=== PATIENT | female | born 1990 | race American Indian/Alaskan Native ===

== ENCOUNTER 2017-02-02 10:12 | Emergency (ER) | payer SELFPAY ==
[2017-02-02 16:45] VITALS: BP 104/67
--- NOTE | 2017-02-02 18:43 | Emergency Department Report ---
Entered by JAMAR OROURKE, acting as scribe for MARILIA ANDERSON NP. - General Chief Complaint: Laceration/Recheck/Suture Stated Complaint: LEFT HAND MIDDLE FINGER Time Seen by Provider: 02/02/17 15:27 Source: patient Mode of arrival: Ambulatory Limitations: No Limitations - History of Present Illness Initial Comments: This is a 26 y/o female, nontoxic, well nourished in appearance, no acute signs of distress presents with laceration to left middle finger that occurred this morning around 12 AM. Patient stated she accidentally cut herself with a clean knife from the kitchen before cutting her vegetables. Associated symptoms include pain but she denies nausea, vomiting, numbness, tingling, bleeding, chest pain, short of breath, stiff neck, fever, chills, fever and chills. Pain is described as sharp, throbbing and 9/10 on a severity scale. No alleviating or aggravating factors. NKDA. Patient states she is 11 weeks . Patient stated is UTD with tetanus. Patient stated was last week and her [employer] with normal . Onset/Timin (AM) -: Gradual, This morning Location: other (left middle finger ) Extremity Location: Left: Hand (middle finger) Place: home Patient Tetanus UTD: Yes (as per patient) Context: sharp object use (knife) Associated Symptoms: none. denies: pain, loss of feeling/numbness, suspect foreign body present, unable to move injured part, weakness followed by dizziness, nausea/vomiting, fever, other (fever/chills) - Related Data Previous Rx's Medication Instructions Recorded Last Taken Type Acetaminophen/Codeine 1 tab PO Q6H PRN #30 tab 05/02/14 Unknown Rx [Acetaminophen-Codeine #3 TAB] Cyclobenzaprine [Flexeril 10mg] 10 mg PO TID PRN #30 tablet 05/02/14 Unknown Rx Ibuprofen [Motrin] 800 mg PO TID PRN #60 tablet 05/02/14 Unknown Rx Amoxicillin/K Clav Tab [Augmentin 1 tab PO Q12HR 7 Days 02/02/17 Unknown Rx 875 mg] Allergies Allergy/AdvReac Type Severity Reaction Status Date / Time No Known Allergies Allergy Verified 05/01/14 21:32 ED Review of Systems Comment: All other systems reviewed and negative Constitutional: denies: chills, fever Eyes: denies: eye pain, eye discharge, vision change ENT: denies: ear pain, throat pain Respiratory: denies: cough, shortness of breath, wheezing Cardiovascular: denies: chest pain, palpitations Endocrine: no symptoms reported Gastrointestinal: denies: nausea, vomiting Genitourinary: denies: urgency, dysuria, discharge Musculoskeletal: denies: back pain, joint swelling, arthralgia Skin: other (pain, laceration to left middle finger) Neurological: denies: headache, weakness, paresthesias Psychiatric: denies: anxiety, depression Hematological/Lymphatic: denies: easy bleeding, easy bruising ED Past Medical Hx - Past Medical History Previous Medical History?: Yes Additional medical history: Vaginal delivery 2007. Hx. of meningitis in 2009 - Surgical History Past Surgical History?: No - Social History Smoking Status: Never Smoker Substance Use Type: None - Medications Home Medications: Home Medications Medication Instructions Recorded Confirmed Last Taken Type Acetaminophen/Codeine 1 tab PO Q6H PRN #30 tab 05/02/14 Unknown Rx [Acetaminophen-Codeine #3 TAB] Cyclobenzaprine [Flexeril 10mg] 10 mg PO TID PRN #30 tablet 05/02/14 Unknown Rx Ibuprofen [Motrin] 800 mg PO TID PRN #60 tablet 05/02/14 Unknown Rx Amoxicillin/K Clav Tab [Augmentin 1 tab PO Q12HR 7 Days 02/02/17 Unknown Rx 875 mg] ED Physical Exam - General Limitations: No Limitations General appearance: alert, in no apparent distress - Head Head exam: Present: atraumatic, normocephalic, normal inspection - Eye Eye exam: Present: normal appearance, PERRL, EOMI. Absent: scleral icterus, conjunctival injection, nystagmus, periorbital swelling, periorbital tenderness Pupils: Present: normal accommodation - ENT ENT exam: Present: normal exam, normal orophraynx, mucous membranes moist, TM's normal bilaterally, normal external ear exam - Neck Neck exam: Present: normal inspection, full ROM. Absent: tenderness, meningismus, lymphadenopathy, thyromegaly - Respiratory Respiratory exam: Present: normal lung sounds bilaterally. Absent: respiratory distress, wheezes, rales, rhonchi, stridor, chest wall tenderness, accessory muscle use, decreased breath sounds, prolonged expiratory - Cardiovascular Cardiovascular Exam: Present: regular rate, normal rhythm, normal heart sounds. Absent: bradycardia, tachycardia, irregular rhythm, systolic murmur, diastolic murmur, rubs, gallop - GI/Abdominal GI/Abdominal exam: Present: soft, normal bowel sounds. Absent: distended, tenderness, guarding, rebound, rigid, diminished bowel sounds - Rectal Rectal exam: Present: deferred - Extremities Exam Extremities exam: Present: normal inspection, full ROM, normal capillary refill. Absent: tenderness, pedal edema, joint swelling, calf tenderness - Expanded Upper Extremity Exam Left General: Present: normal inspection, laceration Shoulder Exam: Present: normal inspection, full ROM. Absent: tenderness, swelling, abrasion, laceration, ecchymosis, deformity, crepidus, dislocation, erythema, tenderness over AC joint Upper Arm exam: Present: normal inspection, full ROM. Absent: tenderness, swelling, abrasion, laceration, ecchymosis, deformity, crepidus, dislocation, erythema Elbow exam: Present: normal inspection, full ROM. Absent: tenderness, swelling , abrasion, laceration, ecchymosis, deformity, crepidus, dislocation, erythema, effusion, pain w/ pronation/supination, tenderness over radial head Forearm Wrist exam: Present: normal inspection, full ROM. Absent: tenderness, swelling, abrasion, laceration, ecchymosis, deformity, crepidus, dislocation, erythema, tenderness over anatomical snuff box, pain with axial thumb loading Hand Wrist exam: Present: normal inspection, full ROM, laceration (1 cm superficial laceration to the distal middle finger). Absent: tenderness, swelling, abrasion, ecchymosis, deformity, crepidus, dislocation, erythema, amputation, nail avulsion, subungual hematoma Hand L/R Front: 1 - Positive: laceration (1 cm laceration) Neuro motor exam: Present: wrist extension intact, thumb opposition intact, thumb IP flexion intact, thumb adduction intact, fingers 2-5 abduction intact Neurosensory exam: Present: 2-point discrimination, radial nerve intact, ulnar nerve intact, median nerve intact Vascular: Present: vascular compromise, normal capillary refill, radial pulse, brachial pulse, ulnar pulse. Absent: Pallo, pulse deficit radial art, pulse deficit ulnar art, pulse deficit brachial art - Back Exam Back exam: Present: normal inspection, full ROM. Absent: tenderness, CVA tenderness (R), CVA tenderness (L), muscle spasm, paraspinal tenderness, vertebral tenderness, rash noted - Neurological Exam Neurological exam: Present: alert, altered, oriented X3, CN II-XII intact, normal gait, reflexes normal - Psychiatric Psychiatric exam: Present: normal affect, normal mood - Skin Skin exam: Present: warm, dry, intact, normal color. Absent: rash ED Course Vital Signs 02/02/17 11:11 Temperature 98.6 F Pulse Rate 88 Respiratory 18 Rate Blood Pressure 99/60 O2 Sat by Pulse 100 Oximetry - Reevaluation(s) Reevaluation #1: 02/02/17 16:17 Patient is able speak in full sentences with no signs of distress. Reevaluation #2: 02/02/17 16:18 Patient was instructed of cons of having the wound closed due to infection and longer than 12 hours. Patient insisted me to close the wound. Patient agrees and understands the risk factors of closing the wound. 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 I instructed the importance of signs of infection and keep area dry and clean. - Laceration /Wound Repair Left Finger Wound Location: upper extremity (left distal middle finger) Wound Length (cm): 1 Wound's Depth, Shape: superficial Wound Explored: clean Irrigated w/ Saline (ccs): 30 Betadine Prep?: Yes Wound Debrided: minimal Wound Repaired With: Dermabond Sterile Dressing Applied?: Yes Progress: Under sterile field, I used Betadine to clean the area. I then used 60 mL of normal saline with Betadine and soaked the patient's finger. I then cleaned the area with sterile saline. I applied Dermabond to the laceration linear. I then apply a sterile Steri-Strip to the area. I then applied a sterile 4 x 4 with tape. Minimal bleeding noted but is under control. Patient tolerated procedure well with no signs of distress. Patient received a finger splint. ED Medical Decision Making - Medical Decision Making ED course; this is a 26-year-old female that presents with one centimeter laceration to the distal middle finger Patient was examined myself. Patient was instructed of cons of having the wound closed due to infection and longer than 12 hours. Patient insisted me to close the wound. Patient agrees and understands the risk factors of closing the wound. 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 I instructed the importance of signs of infection and keep area dry and clean. It was similar laceration was repaired with Dermabond and Steri-Strips. I then applied a finger splint so the patient does not bend the finger times one week. Patient was discharged with Augmentin 7 days. Patient was instructed to follow-up with her primary care doctor in 3-5 days or symptoms such as pus, drainage, numbness, tingling, fever or chills return to the ER as soon as possible. At time time of discharge, the patient does not seem toxic or ill in appearance. No acute signs of distress noted. Patient agrees to discharge treatment plan of care. No further questions noted by the patient. ED Disposition Clinical Impression: Laceration Disposition: DC-01 TO HOME OR SELFCARE Is pt being admited?: No Does the pt Need Aspirin: No Condition: Stable Instructions: Laceration (ED), Acute Wound Care (ED), Amoxicillin/Clavulanate Potassium (By mouth) Additional Instructions: follow-up with your primary care doctor in 3-5 days or symptoms such as pus, drainage, numbness, tingling, fever or chills return to the ER as soon as possible. Take full course of antibiotics and was prescribed. You can remove the splint in 7 days. Keep area clean and dry for 7 days. Prescriptions: Amoxicillin/K Clav Tab [Augmentin 875 mg] 1 tab PO Q12HR 7 Days Referrals: PRIMARY CAREMD [Primary Care Provider] - 3-5 Days CONNOR SAMUEL MD [Staff Physician] - 3-5 Days [facility] [Outside] - 3-5 Days [facility] [Outside] - 3-5 Days Forms: Work/School Release Form(ED) This documentation as recorded by the HAVEN lee ELIZABETH,accurately reflects the service I personally performed and the decisions made by me,MARILIA ANDERSON, [employer].
== END 2017-02-02 16:55 | disposition home or self-care (01) ==
LOC: ED 10:12
DX: S61.213A Laceration without foreign body of left middle finger without damage to nail, initial encounter (principal); W26.0XXA Contact with knife, initial encounter; Y93.89 Activity, other specified; Y92.090 Kitchen in other non-institutional residence as the place of occurrence of the external cause; Y99.8 Other external cause status
CPT/HCPCS: 99282